=== PATIENT | female | born 1985 | race Two or more races ===

== ENCOUNTER 2024-03-15 08:22 | Inpatient (IN) | payer BC, OTHER ==
[~2024-03-15] VITALS: Ht 170.2 cm; Wt 87.4 kg
[2024-03-15] MEDS: IBUPROFEN 800 MG TAB PO ONE (08:45)
[2024-03-15] MEDS: ACETAMINOPHEN 500 MG TAB PO ONE (08:45)
[2024-03-15 09:27] VITALS: PULSE 120; RESP 18
[2024-03-15] MEDS: cefTRIAXone 1GM/50ML D5W 50 ML IV ONE (09:45)
[2024-03-15] MEDS: metroNIDAZOLE 500MG/100ML 100 ML IV ONE (09:45)
[2024-03-15 09:59] LABS: Urine Bacteria MOD /hpf (None Seen); Urine Blood 2+ /uL (Negative); Urine Clarity Turbid (Clear); Urine Color Yellow (Yellow); Urine Mucus FEW (None Seen); Urine Protein, UAD 1+ (Negative); Urine Specific Gravity 1.017 (1.001-1.035); Urine Urobilinogen 2 mg/dL (Negative); Urine WBC 167 /hpf (0 - 5)
[2024-03-15] MEDS: SODIUM CHLORIDE 0.9% 1,000 ML IVB ONE (10:07)
[2024-03-15 10:20] LABS: Basophils # (auto) 0 10 ^3/uL (0-0.2); Eosinophils # (auto) 0 10 ^3/uL (0-0.8); Hematocrit 38.2 % (36.0-46.0); Hemoglobin 13.2 g/dL (12.2-16.2); Lymphocytes # (auto) 1.1 10 ^3/uL (0.4-5.4); Lymphocytes % (auto) 11.3 % (10.0-50.0); Mean Corpuscular Hemoglobin 30.7 pg (28.0-32.0); Mean Corpuscular Hgb Conc. 34.4 g/dL (32.0-36.0); Mean Corpuscular Volume 89.2 fL (80.0-100.0); Monocytes % (auto) 10.9 % (0.0-12.0); Neutrophils # (auto) 7.4 10 ^3/uL (1.6-8.6); Neutrophils % (auto) 77.8 % (37.0-80.0); Red Blood Cells 4.29 10^6/uL (4.0-5.20); Red Cell Distribution Width 13.2 % (11.8-14.3); White Blood Cell 9.5 10^3/uL (4.4-10.8)
[2024-03-15 10:41] LABS: Alanine Aminotransferase 29 U/L (7-40); Albumin 4.4 g/dL (3.2-4.8); Alkaline Phosphatase 52 U/L (46-116); Anion Gap 8 (5-15); Aspartate Aminotransferase 29 U/L (13-40); BUN/Creatinine Ratio 5.8 (10.0-20.0); Bilirubin, Total 0.9 mg/dL (0.2-1.0); Blood Urea Nitrogen < 5 mg/dL (9-23); Calcium 9.4 mg/dL (8.5-10.1); Carbon Dioxide 23 mmol/L (20-30); Chloride 106 mmol/L (98-107); Glucose 97 mg/dL (74-106); Potassium 3.5 mmol/L (3.5-5.1); Sodium 137 mmol/L (136-145); Total Protein 7.1 g/dL (5.7-8.2)
[2024-03-15] MEDS: ONDANSETRON HCL 4 MG/2 ML VIAL IV ONE (12:34)
[2024-03-15] MEDS: SODIUM CHLORIDE 0.9% 1,000 ML IV ONE (12:34)
[2024-03-15] MEDS: MORPHINE SULFATE 4 MG/ML SYR/VIAL IV ONE (12:34)
[2024-03-15] MEDS ORDERED: ACETAMINOPHEN 325 MG TAB PO PRN (14:00)
[2024-03-15] MEDS: SODIUM CHLORIDE 0.9% 1,000 ML IV SCH (14:12)
[2024-03-15] MEDS: MORPHINE SULFATE INJ 2 MG/ml SYRG IV PRN (16:20)
[2024-03-15] MEDS: ONDANSETRON HCL 4 MG/2 ML VIAL IV PRN (16:21)
[2024-03-15 19:30] VITALS: RESP 19; O2SAT 97
[2024-03-15] MEDS: HYDROcodone-ACET 5/325MG TAB PO PRN (22:17)
[2024-03-15 23:00] VITALS: BP 105/55; PULSE 118; RESP 20; TEMP 102.7; O2SAT 98
[2024-03-15] MEDS: ACETAMINOPHEN 325 MG TAB PO PRN (23:19)
[2024-03-15 23:28] VITALS: BP 105/55; PULSE 118; RESP 20; TEMP 102.7; O2SAT 98
[2024-03-16] VITALS (8 sets, daily range): BP systolic 100–118; BP diastolic 54–75; PULSE 66–112; RESP 17–18; TEMP 98.5–101; O2SAT 96–98
[2024-03-16 06:41] LABS: Basophils # (auto) 0 10 ^3/uL (0-0.2); Basophils % (auto) 0.3 % (0.0-2.0); Eosinophils # (auto) 0 10 ^3/uL (0-0.8); Eosinophils % (auto) 0.3 % (0.0-7.0); Hematocrit 35.1 % (36.0-46.0); Hemoglobin 12.1 g/dL (12.2-16.2); Lymphocytes # (auto) 1.3 10 ^3/uL (0.4-5.4); Lymphocytes % (auto) 16.1 % (10.0-50.0); Mean Corpuscular Hgb Conc. 34.5 g/dL (32.0-36.0); Monocytes # (auto) 1.1 10 ^3/uL (0-1.3); Monocytes % (auto) 13.9 % (0.0-12.0); Neutrophils # (auto) 5.5 10 ^3/uL (1.6-8.6); Neutrophils % (auto) 69.4 % (37.0-80.0); Red Blood Cells 3.89 10^6/uL (4.0-5.20); Red Cell Distribution Width 13.4 % (11.8-14.3); White Blood Cell 7.9 10^3/uL (4.4-10.8)
[2024-03-16 06:46] LABS: Chloride 109 mmol/L (98-107); Sodium 139 mmol/L (136-145)
[2024-03-16 06:47] LABS: Anion Gap 5 (5-15); Calcium 8.7 mg/dL (8.5-10.1); Carbon Dioxide 25 mmol/L (20-30)
[2024-03-16 06:52] LABS: Glucose 98 mg/dL (74-106)
[2024-03-16 06:53] LABS: BUN/Creatinine Ratio 6.2 (10.0-20.0); Blood Urea Nitrogen < 5 mg/dL (9-23)
[2024-03-16] MEDS: cefTRIAXone 1GM/50ML D5W 50 ML IV SCH (09:05)
[2024-03-16] MEDS ORDERED: POLYETHYLENE GLYCOL 17 GM PWDR PO PRN (15:00)
[2024-03-16] MEDS: POLYETHYLENE GLYCOL 17 GM PWDR PO ONE (15:29)
[2024-03-16] MEDS: METOCLOPRAMIDE HCL 5MG/ml INJ 2ml VIAL IV ONE (15:29)
[2024-03-16] MEDS: metroNIDAZOLE 500 MG TAB PO SCH (22:05)
[2024-03-17 05:00] VITALS: BP 107/67; PULSE 86; RESP 18; TEMP 97.7; O2SAT 98
[2024-03-17 05:31] LABS: Basophils # (auto) 0 10 ^3/uL (0-0.2); Basophils % (auto) 0.2 % (0.0-2.0); Eosinophils # (auto) 0 10 ^3/uL (0-0.8); Eosinophils % (auto) 0.7 % (0.0-7.0); Hemoglobin 11.8 g/dL (12.2-16.2); Lymphocytes # (auto) 1.3 10 ^3/uL (0.4-5.4); Lymphocytes % (auto) 20.9 % (10.0-50.0); Mean Corpuscular Hemoglobin 30.3 pg (28.0-32.0); Mean Corpuscular Hgb Conc. 33.7 g/dL (32.0-36.0); Mean Corpuscular Volume 89.7 fL (80.0-100.0); Monocytes # (auto) 0.8 10 ^3/uL (0-1.3); Monocytes % (auto) 12.4 % (0.0-12.0); Neutrophils # (auto) 4.2 10 ^3/uL (1.6-8.6); Neutrophils % (auto) 65.8 % (37.0-80.0); Red Blood Cells 3.91 10^6/uL (4.0-5.20); Red Cell Distribution Width 13.7 % (11.8-14.3); White Blood Cell 6.3 10^3/uL (4.4-10.8)
[2024-03-17 05:46] LABS: Anion Gap 6 (5-15); Carbon Dioxide 25 mmol/L (20-30); Chloride 109 mmol/L (98-107); Potassium 3.7 mmol/L (3.5-5.1); Sodium 140 mmol/L (136-145)
[2024-03-17 05:47] LABS: Calcium 8.8 mg/dL (8.5-10.1)
[2024-03-17 05:52] LABS: Glucose 93 mg/dL (74-106)
[2024-03-17 06:07] LABS: BUN/Creatinine Ratio 7.5 (10.0-20.0); Blood Urea Nitrogen < 5 mg/dL (9-23)
[2024-03-17 07:30] VITALS: BP 110/67; PULSE 66; RESP 16; RESP 18; TEMP 99.1; O2SAT 98
[2024-03-17 08:33] VITALS: BP 112/77; PULSE 87; RESP 17; TEMP 98; O2SAT 98
[2024-03-17] MEDS ORDERED: LEVO500T91 PO (10:53)
[2024-03-17 11:30] VITALS: TEMP 98.3
== END 2024-03-17 12:15 | disposition home or self-care (01) | DRG 872 ==
LOC: ER 08:22 → OVERFLOW 14:02 → WEST WING 22:51
PROVIDERS: ADMIT Registered Nurse; ATTEND Nurse Practitioner Acute Care
DX: A41.9 Sepsis, unspecified organism (principal); N30.01 Acute cystitis with hematuria; N12 Tubulo-interstitial nephritis, not specified as acute or chronic; E66.9 Obesity, unspecified; K59.00 Constipation, unspecified; K52.9 Noninfective gastroenteritis and colitis, unspecified; Z79.899 Other long term (current) drug therapy; Z68.30 Body mass index [BMI] 30.0-30.9, adult
CPT/HCPCS: 36415; 74176; 80048; 80053; 81001; 81025; 83605; 85025; 87040; 87086; 87088; 87186; 93005; 96365; 96366; 96368; 96375; G0378; J2405; J3490